=== PATIENT | male | born 2000 ===

== ENCOUNTER 2022-02-16 15:03 | Emergency (ER) | payer OTHER ==
[~2022-02-16] VITALS: Ht 185.4 cm; Wt 86.2 kg
[2022-02-16] MEDS ORDERED: LIDOCAINE 1% HCL (LOCAL ANESTH.) INJ 20ML MDV ID ONE (18:00)
[2022-02-16 18:12] VITALS: BP 108/54
[2022-02-16] MEDS ORDERED: SULF800T7 PO (18:21)
== END 2022-02-16 18:28 | disposition home or self-care (01) ==
LOC: ER 15:03
DX: L03.012 Cellulitis of left finger (principal)
CPT/HCPCS: 10060